=== PATIENT | male | born 1985 | race Two or more races ===

== ENCOUNTER 2019-07-06 00:38 | Emergency (ER) | payer SELFPAY ==
[~2019-07-06] VITALS: Ht 162.6 cm; Wt 90.7 kg
[~2019-07-06 00:38] MED LIST: CEPHALEXIN500 MG ORAL
--- NOTE | 2019-07-06 00:54 | NUR ---
ED Nurse Note: Pt ambulated to ED from home, c/o pain in R knee after falling while running, denies hitting his head, swelling noted. Pt is A&OX4. BP is high 200/
[2019-07-06] MEDS ORDERED: HYDROcodone/Acetamin 7.5/325 tab ORAL ONE (01:00)
--- NOTE | 2019-07-06 01:00 | Emergency Room Report ---
History of Present Illness General Chief Complaint: Multiple Trauma/Fall Source: Patient Present Illness HPI Disclaimer: Please note that this report is being documented using DRAGON technology. This can lead to erroneous entry secondary to incorrect interpretation by the dictating instrument. HPI: 34-year-old male history of hypertension noncompliant with medication presents for evaluation of right knee pain. He was jogging 2 days ago and tripped on the pavement falling forward onto his right knee. Noted pain and swelling and worsening bruising over the past 2 days. He is still able to ambulate though the pain is getting more intense. Denies pain in the hip or ankle. There is no head injury. Minor lacerations over the lower extremities that have since scabbed over. No recurrent bleeding. He denies prior history of knee injury. Patient was prescribed an antihypertensive medication many years ago but is noncompliant. He denies any headaches, vision changes, chest pain, shortness of breath, abdominal pain, vomiting or any other symptoms at this time. PMH: Hypertension, noncompliant PSH: Denies Allergies: Denies Social Hx: Smoker Allergies: Coded Allergies: No Known Allergies (Unverified , 11/26/15) Nursing Documentation-PMH Past Medical History: No History, Except For Hx Hypertension: Yes Review of Systems All Other Systems: negative except mentioned in HPI Physical Exam Vital Signs Date Time Temp Pulse Resp B/P (MAP) Pulse Ox O2 Delivery O2 Flow Rate FiO2 07/06/19 00:41 98.4 95 14 203/131 (155) 99 Room Air General: Awake and alert, no acute distress HEENT: NC/AT. EOMI. Cardiovascular: RRR. S1 and S2 normal. No murmur appreciated Resp: Normal work of breathing. No cough, wheezing or crackles appreciated Abdomen: Abdomen is soft, nondistended. Nontender Skin: Extensive bruising over the right knee and upper sanders. Small abrasions that do not require closure MSK: Normal tone and bulk. Moving all extremities. No obvious deformity. Tenderness over the patella with only mild without deformity in the patella is anatomic position. He has tenderness over the tibial tuberosity without deformity. There is significant bruising. Mild edema. No effusion. Joint is stable. No laxity on varus or valgus testing. Able to ambulate. Neuro: Awake and alert. Mentating appropriately. Medical Decision Making Diagnostic Impression: Primary Impression: Knee contusion Additional Impression: Hypertension ER Course 34-year-old male presents for evaluation after a fall onto his right knee 2 days ago worsening pain and swelling also found to be significantly hypertensive. His initial blood pressure is severely elevated with systolic pressures around 200. He is asymptomatic and noncompliant with his medication regimen for many years. Will give oral antihypertensives and monitor for improvement. Will send for x-rays of the lower extremity. Update tetanus and provide pain medication. Laboratory Tests Test 07/06/19 01:15 White Blood Count 9.9 K/UL (4.8-10.8) Red Blood Count 4.96 M/UL (4.70-6.10) Hemoglobin 16.1 G/DL (14.2-18.0) Hematocrit 43.7 % (42.0-52.0) Mean Corpuscular Volume 88 FL (80-99) Mean Corpuscular Hemoglobin 32.5 PG (27.0-31.0) H Mean Corpuscular Hemoglobin Concent 36.8 G/DL (32.0-36.0) H Red Cell Distribution Width 11.1 % (11.6-14.8) L Platelet Count 355 K/UL (150-450) Mean Platelet Volume 5.8 FL (6.5-10.1) L Neutrophils (%) (Auto) 54.1 % (45.0-75.0) Lymphocytes (%) (Auto) 30.9 % (20.0-45.0) Monocytes (%) (Auto) 12.1 % (1.0-10.0) H Eosinophils (%) (Auto) 1.1 % (0.0-3.0) Basophils (%) (Auto) 1.9 % (0.0-2.0) Sodium Level 141 MMOL/L (136-145) Potassium Level 3.5 MMOL/L (3.5-5.1) Chloride Level 103 MMOL/L (98-107) Carbon Dioxide Level 29 MMOL/L (21-32) Anion Gap 9 mmol/L (5-15) Blood Urea Nitrogen 19 mg/dL (7-18) H Creatinine 1.1 MG/DL (0.55-1.30) Estimate Glomerular Filtration Rate > 60 mL/min (>60) Glucose Level 128 MG/DL (74-106) H Calcium Level 8.5 MG/DL (8.5-10.1) Other X-Ray Diagnostic Results Other X-Ray Diagnostic Results #1: X-Ray ordered: Right knee # of Views/Limited Vs Complete: Complete Indication: Pain Interpretation: no dislocation, no soft tissue swelling, no fractures Impression: No acute disease Electronically Signed by: Electronically signed by Dr. Allan James Other X-Ray Diagnostic Results #2: X-Ray ordered: Right tib-fib # of Views/Limited Vs Complete: 2 View Indication: Pain Interpretation: no dislocation, no soft tissue swelling, no fractures Impression: No acute disease Electronically Signed by: Electronically signed by Dr. Allan James Reevaluation Time: 02:20 Last Vital Signs Date Time Temp Pulse Resp B/P (MAP) Pulse Ox O2 Delivery O2 Flow Rate FiO2 07/06/19 00:41 98.4 95 14 203/131 (155) 99 Room Air Reevaluation Impression No fracture or dislocation appreciated on x-rays. Labs do not show evidence of endorgan damage. Patient responded well to antihypertensives. Will start on hydrochlorothiazide 25 mg daily. He wants to establish himself as a new patient. We will give him the names of some clinics in the area. He will be referred to orthopedic urgent care with any further knee pain. Will place an Armaan wrap, he can use NSAIDs and crutches if needed. He is also given the number for the orthopedic urgent care with any worsening or change in his condition of the leg pain. Disposition: HOME, SELF-CARE Condition: Stable Scripts Acetaminophen* (ACETAMINOPHEN 325MG TABLET*) 325 Mg Tablet 650 MG ORAL Q6H PRN for For Pain, #40 TAB Prov: Allan James MD 07/06/19 Hydrochlorothiazide* (HYDROCHLOROTHIAZIDE*) 25 Mg Tablet 25 MG ORAL DAILY, #30 TAB Prov: Allan James MD 07/06/19 Allan James MD Jul 06, 2019 01:00
[2019-07-06] MEDS ORDERED: Tetanus/Diptheria/Pertussis IM ONE (01:15)
[2019-07-06 01:19] VITALS: BP 203/131
[2019-07-06 01:40] LABS: BASOPHILS % (AUTO) 1.9 % (0.0-2.0); EOSINOPHILS % (AUTO) 1.1 % (0.0-3.0); HEMATOCRIT 43.7 % (42.0-52.0); HEMOGLOBIN 16.1 G/DL (14.2-18.0); LYMPHOCYTES % (AUTO) 30.9 % (20.0-45.0); MEAN CORPUSCULAR VOLUME 88 FL (80-99); MONOCYTES % (AUTO) 12.1 % (1.0-10.0); NEUTROPHILS % (AUTO) 54.1 % (45.0-75.0); PLATELET COUNT 355 K/UL (150-450); RED BLOOD COUNT 4.96 M/UL (4.70-6.10); RED CELL DISTRIBUTION WIDTH 11.1 % (11.6-14.8); WHITE BLOOD COUNT 9.9 K/UL (4.8-10.8)
[2019-07-06 02:03] LABS: ANION GAP 9 mmol/L (5-15); BLOOD UREA NITROGEN 19 mg/dL (7-18); CALCIUM 8.5 MG/DL (8.5-10.1); CARBON DIOXIDE 29 MMOL/L (21-32); CHLORIDE 103 MMOL/L (98-107); CREATININE 1.1 MG/DL (0.55-1.30); POTASSIUM 3.5 MMOL/L (3.5-5.1); SODIUM 141 MMOL/L (136-145)
[2019-07-06] MEDS ORDERED: HYDROCHLOROTHIA25 MG ORAL (02:19)
[2019-07-06] MEDS ORDERED: ACETAMINOPHEN325 M1 ORAL (02:23)
[2019-07-06 02:30] VITALS: BP 154/91
--- NOTE | 2019-07-06 02:30 | NUR ---
ER DISCHARGE NOTE: Patient is cleared to be discharged per ERMD, pt is aox4, on room air, with stable vital signs. pt was given dc and prescription instructions, pt was able to verbalize understanding, pt id band and iv site removed without complications. pt is able to ambulate with steady gait. pt took all belongings. EDucated and answered questions regarding BP medication and its importance
--- NOTE | 2019-07-06 03:50 | Diagnostic Imaging Report ---
EXAM: XR Right Knee, 3 Views CLINICAL HISTORY: INJ TECHNIQUE: Three views of the right knee. COMPARISON: No relevant prior studies available. FINDINGS: Bones/joints: Unremarkable. No acute fracture. No dislocation. Soft tissues: Unremarkable. IMPRESSION: No definite plain film evidence for acute fracture or dislocation. If there is continued clinical concern for fracture, consider CT or MRI for further evaluation.
--- NOTE | 2019-07-06 03:50 | Diagnostic Imaging Report ---
EXAM: XR Right Tibia and Fibula, 2 Views CLINICAL HISTORY: INJ TECHNIQUE: Frontal and lateral views of the right tibia and fibula. COMPARISON: No relevant prior studies available. FINDINGS: Bones/joints: Unremarkable. No acute fracture. No dislocation. Soft tissues: Unremarkable. No radiopaque foreign body. IMPRESSION: No definite plain film evidence for acute fracture or dislocation. If there is continued clinical concern for fracture, consider CT or MRI for further evaluation.
== END 2019-07-06 02:30 | disposition home or self-care (01) ==
LOC: EMR 01:25
DX: S80.01XA Contusion of right knee, initial encounter (principal); I10 Essential (primary) hypertension; Z91.14 Patient's other noncompliance with medication regimen; W01.0XXA Fall on same level from slipping, tripping and stumbling without subsequent striking against object, initial encounter; Y92.9 Unspecified place or not applicable; Z23 Encounter for immunization
CPT/HCPCS: 36415; 80048; 85025; 90471; 90715; 99284